=== PATIENT | female | born 1950 | race Caucasian/White ===

== ENCOUNTER 2017-09-29 21:19 | Emergency (ER) | payer MEDICARE, OTHER ==
[~2017-09-29] VITALS: Ht 170.2 cm; Wt 80.0 kg
[~2017-09-29 21:19] MED LIST: CLON.1 PO; FOLI1 PO; MVI PO; THIA100T PO
[2017-09-29 21:31] VITALS: BP 142/67; PULSE 84; RESP 16; TEMP 98.7
--- NOTE | 2017-09-29 21:51 | PD ---
HPI Chief Complaint: Alcohol/Drug Intoxication Time Seen by Provider: 21:48 Travel History International Travel<30 days: No Contact w/Intl Traveler<30days: No Traveled to known affect area: No History of Present Illness HPI 67-year-old female presents under [place] act [place] the [employer] for evaluation of suicidal ideation. The patient reports that she has been feeling depressed and had occasional passive suicidal thoughts for "a long time. " Today she had an argument with her son whom she lives with. She told her son that she would be better off and thus she was placed under Reeder act. Patient reports frequent alcohol use, she believes that she drank about a half a bottle of vodka yesterday. She does not believe that she drank any alcohol today. She denies any illicit drug use. She reports that she does not follow with a primary care physician or psychiatrist. Her primary concern seems to be her lack of a good relationship with her son. She has no medical complaints at this time. PFSH Past Medical History Hx Anticoagulant Therapy: No Depression: Yes Cardiovascular Problems: No High Cholesterol: Yes Chemotherapy: No Cerebrovascular Accident: No Diabetes: No Diminished Hearing: No Hypertension: Yes Psychiatric: Yes (depression, alcohol abuse) Respiratory: No Seizures: Yes (alcohol related, per daughter) ?: Not Menopausal: Yes Past Surgical History Hysterectomy: Yes Social History Alcohol Use: Yes (everyday) Tobacco Use: No Substance Use: Yes (ETOH since age 15; Daily abuse of atleast a glass full of Vodka. ) Allergies-Medications (Allergen,Severity, Reaction): Coded Allergies: penicillin G (Unverified Allergy, Unknown, 09/29/17) Reported Meds & Prescriptions Reported Meds & Active Scripts Active Active Prescriptions or Reported Medications Unobtainable Review of Systems Except as stated in HPI: all other systems reviewed are Neg Physical Exam Narrative GENERAL: This is a disheveled female who is sitting upright on a chair. SKIN: Warm and dry. HEAD: Atraumatic. Normocephalic. EYES: Pupils equal and round. No scleral icterus. No injection or drainage. ENT: No nasal bleeding or discharge. Mucous membranes pink and moist. NECK: Trachea midline. No JVD. CARDIOVASCULAR: Regular rate and rhythm. No murmur appreciated. RESPIRATORY: No accessory muscle use. Clear to auscultation. Breath sounds equal bilaterally. GASTROINTESTINAL: Abdomen soft, non-tender, nondistended. Hepatic and splenic margins not palpable. MUSCULOSKELETAL: No obvious deformities. No clubbing. No cyanosis. No edema. NEUROLOGICAL: Awake and alert. No obvious cranial nerve deficits. Motor grossly within normal limits. Normal speech. PSYCHIATRIC: Depressed, insight and judgment appear reasonable. Data Data Last Documented VS Vital Signs Date Time Temp Pulse Resp B/P (MAP) Pulse Ox O2 Delivery O2 Flow Rate FiO2 09/30/17 12:18 09/30/17 05:26 79 20 96 Room Air 09/29/17 22:02 98.0 Orders Orders Complete Blood Count With Diff (09/29/17 21:52) Comprehensive Metabolic Panel (09/29/17 21:52) Urinalysis - C+S If Indicated (09/29/17 21:52) Thyroid Stimulating Hormone (09/29/17 21:52) Drug Screen, Random Urine (09/29/17 21:52) Alcohol (Ethanol) (09/29/17 22:41) Psych Screen (09/30/17 00:24) Diet Regular Basic (09/30/17 Breakfast) Ed Discharge Order (09/30/17 08:54) Labs Laboratory Tests Test 09/29/17 22:03 09/29/17 23:01 White Blood Count 7.3 TH/MM3 Red Blood Count 4.32 MIL/MM3 Hemoglobin 14.1 GM/DL Hematocrit 42.0 % Mean Corpuscular Volume 97.4 FL Mean Corpuscular Hemoglobin 32.7 PG Mean Corpuscular Hemoglobin Concent 33.5 % Red Cell Distribution Width 14.7 % Platelet Count 194 TH/MM3 Mean Platelet Volume 8.1 FL Neutrophils (%) (Auto) 42.0 % Lymphocytes (%) (Auto) 48.9 % Monocytes (%) (Auto) 7.3 % Eosinophils (%) (Auto) 1.3 % Basophils (%) (Auto) 0.5 % Neutrophils # (Auto) 3.1 TH/MM3 Lymphocytes # (Auto) 3.6 TH/MM3 Monocytes # (Auto) 0.5 TH/MM3 Eosinophils # (Auto) 0.1 TH/MM3 Basophils # (Auto) 0.0 TH/MM3 CBC Comment DIFF FINAL Differential Comment Blood Urea Nitrogen 15 MG/DL Creatinine 0.72 MG/DL Random Glucose 79 MG/DL Total Protein 7.8 GM/DL Albumin 3.7 GM/DL Calcium Level 9.4 MG/DL Alkaline Phosphatase 116 U/L Aspartate Amino Transf (AST/SGOT) 66 U/L Alanine Aminotransferase (ALT/SGPT) 40 U/L Total Bilirubin 0.4 MG/DL Sodium Level 145 MEQ/L Potassium Level 3.7 MEQ/L Chloride Level 109 MEQ/L Carbon Dioxide Level 21.7 MEQ/L Anion Gap 14 MEQ/L Estimat Glomerular Filtration Rate 81 ML/MIN Thyroid Stimulating Hormone 3rd Gen 0.968 uIU/ML Ethyl Alcohol Level 338 MG/DL Urine Color YELLOW Urine Turbidity CLEAR Urine pH 5.0 Urine Specific [place] 1.005 Urine Protein NEG mg/dL Urine Glucose (UA) NEG mg/dL Urine Ketones NEG mg/dL Urine Occult Blood TRACE Urine Nitrite NEG Urine Bilirubin NEG Urine Urobilinogen LESS THAN 2.0 MG/DL Urine Leukocyte Esterase SMALL Urine RBC LESS THAN 1 /hpf Urine WBC 2 /hpf Urine Squamous Epithelial Cells 2 /hpf Urine Transitional Epithelial Cells <1 /hpf Urine Bacteria RARE /hpf Urine Mucus FEW /lpf Microscopic Urinalysis Comment CULT NOT INDICATED Urine Opiates Screen NEG Urine Barbiturates Screen NEG Urine Amphetamines Screen NEG Urine Benzodiazepines Screen NEG Urine Cocaine Screen NEG Urine Cannabinoids Screen NEG MDM Medical Decision Making Medical Screen Exam Complete: Yes Emergency Medical Condition: Yes Medical Record Reviewed: Yes Differential Diagnosis Substance-induced mood disorder, acute psychosis, major depressive disorder, adjustment reaction, depressive disorder not otherwise specified Narrative Course 67-year-old female presents under Reeder act for psychiatric evaluation. Mental health screening discussed with the patient. Psychiatric screen ordered. Alcohol level is 338. Otherwise lab work is unremarkable. The patient is medically cleared for psychiatric disposition. Diagnosis Primary Impression: Medical clearance for psychiatric admission Scripts Unable to Obtain Active Prescriptions or Reported Meds Kamran Mcknight September 29, 2017 21:51
[2017-09-29 22:02] VITALS: BP 128/73; PULSE 81; RESP 20; TEMP 98; O2SAT 97
[2017-09-29 22:21] LABS: AUTOMATED NEUTROPHIL # 3.1 TH/MM3 (1.8-7.7); BASOPHIL % 0.5 % (0.0-2.0); EOSINOPHIL # 0.1 TH/MM3 (0-0.4); EOSINOPHIL % 1.3 % (0.0-4.0); HEMOGLOBIN 14.1 GM/DL (11.6-15.3); LYMPH % 48.9 % (9.0-44.0); LYMPHOCYTE # 3.6 TH/MM3 (1.0-4.8); MEAN CELL VOLUME 97.4 FL (80.0-100.0); MEAN CORPUSCULAR HEMOGLOBIN 32.7 PG (27.0-34.0); MEAN CORPUSCULAR HGB CONC 33.5 % (32.0-36.0); MEAN PLATELET VOLUME 8.1 FL (7.0-11.0); MONO % 7.3 % (0.0-8.0); MONOCYTE # 0.5 TH/MM3 (0-0.9); PLATELET COUNT 194 TH/MM3 (150-450); RED BLOOD COUNT 4.32 MIL/MM3 (4.00-5.30); RED CELL DISTRIBUTION WIDTH 14.7 % (11.6-17.2); WHITE BLOOD COUNT 7.3 TH/MM3 (4.0-11.0)
[2017-09-29 22:43] LABS: ALBUMIN 3.7 GM/DL (3.4-5.0); AST (GOT) 66 U/L (15-37); BICARBONATE 21.7 MEQ/L (21.0-32.0); BLOOD UREA NITROGEN 15 MG/DL (7-18); CALCIUM 9.4 MG/DL (8.5-10.1); CHLORIDE 109 MEQ/L (98-107); CREATININE 0.72 MG/DL (0.50-1.00); GLOMERULAR FILTRATION RATE 81 ML/MIN (>89); GLUCOSE,RANDOM 79 MG/DL (74-106); SODIUM (NA) 145 MEQ/L (136-145)
[2017-09-29 22:44] LABS: ALT (GPT) 40 U/L (10-53)
[2017-09-29 22:53] LABS: ALKALINE PHOSPHATASE 116 U/L (45-117); TOTAL BILIRUBIN ADULT 0.4 MG/DL (0.2-1.0); TOTAL PROTEIN 7.8 GM/DL (6.4-8.2)
[2017-09-29 23:28] LABS: BACTERIA, URINE RARE /hpf; BILIRUBIN, URINE NEG (NEG); BLOOD, URINE TRACE (NEG); GLUCOSE,URINE NEG (NEG); KETONE, URINE NEG (NEG); MUCUS URINE FEW /lpf (OCC); NITRITE,URINE NEG (NEG); SQUAMOUS EPITHELIAL CELL URINE 2 /hpf (0-5); TRANSITIONAL EPI CELLS, URINE <1 /hpf; URINE COLOR YELLOW (YELLW/STRAW); URINE LEUKOCYTE ESTERASE SMALL (NEG)
[2017-09-30 05:26] VITALS: BP 117/70; PULSE 79; RESP 20; O2SAT 96
--- NOTE | 2017-09-30 08:54 | PD ---
Physical Exam Date Seen by Provider: September 30, 2017 Time Seen by Provider: 08:53 Narrative 67-year-old female previously Reeder acted and medically cleared for psychiatric evaluation, has been seen by psychiatric staff, and deemed to be psychiatrically stable for discharge at this time. Patient remains medically stable for discharge at this time. Follow-up will be based on psychiatric note. Data Data Last Documented VS Vital Signs Date Time Temp Pulse Resp B/P (MAP) Pulse Ox O2 Delivery O2 Flow Rate FiO2 09/30/17 05:26 79 20 117/70 (86) 96 Room Air 09/29/17 22:02 98.0 Orders Orders Complete Blood Count With Diff (09/29/17 21:52) Comprehensive Metabolic Panel (09/29/17 21:52) Urinalysis - C+S If Indicated (09/29/17 21:52) Thyroid Stimulating Hormone (09/29/17 21:52) Drug Screen, Random Urine (09/29/17 21:52) Alcohol (Ethanol) (09/29/17 22:41) Psych Screen (09/30/17 00:24) Diet Regular Basic (09/30/17 Breakfast) Labs Laboratory Tests Test 09/29/17 22:03 09/29/17 23:01 White Blood Count 7.3 TH/MM3 Red Blood Count 4.32 MIL/MM3 Hemoglobin 14.1 GM/DL Hematocrit 42.0 % Mean Corpuscular Volume 97.4 FL Mean Corpuscular Hemoglobin 32.7 PG Mean Corpuscular Hemoglobin Concent 33.5 % Red Cell Distribution Width 14.7 % Platelet Count 194 TH/MM3 Mean Platelet Volume 8.1 FL Neutrophils (%) (Auto) 42.0 % Lymphocytes (%) (Auto) 48.9 % Monocytes (%) (Auto) 7.3 % Eosinophils (%) (Auto) 1.3 % Basophils (%) (Auto) 0.5 % Neutrophils # (Auto) 3.1 TH/MM3 Lymphocytes # (Auto) 3.6 TH/MM3 Monocytes # (Auto) 0.5 TH/MM3 Eosinophils # (Auto) 0.1 TH/MM3 Basophils # (Auto) 0.0 TH/MM3 CBC Comment DIFF FINAL Differential Comment Blood Urea Nitrogen 15 MG/DL Creatinine 0.72 MG/DL Random Glucose 79 MG/DL Total Protein 7.8 GM/DL Albumin 3.7 GM/DL Calcium Level 9.4 MG/DL Alkaline Phosphatase 116 U/L Aspartate Amino Transf (AST/SGOT) 66 U/L Alanine Aminotransferase (ALT/SGPT) 40 U/L Total Bilirubin 0.4 MG/DL Sodium Level 145 MEQ/L Potassium Level 3.7 MEQ/L Chloride Level 109 MEQ/L Carbon Dioxide Level 21.7 MEQ/L Anion Gap 14 MEQ/L Estimat Glomerular Filtration Rate 81 ML/MIN Thyroid Stimulating Hormone 3rd Gen 0.968 uIU/ML Ethyl Alcohol Level 338 MG/DL Urine Color YELLOW Urine Turbidity CLEAR Urine pH 5.0 Urine Specific [place] 1.005 Urine Protein NEG mg/dL Urine Glucose (UA) NEG mg/dL Urine Ketones NEG mg/dL Urine Occult Blood TRACE Urine Nitrite NEG Urine Bilirubin NEG Urine Urobilinogen LESS THAN 2.0 MG/DL Urine Leukocyte Esterase SMALL Urine RBC LESS THAN 1 /hpf Urine WBC 2 /hpf Urine Squamous Epithelial Cells 2 /hpf Urine Transitional Epithelial Cells <1 /hpf Urine Bacteria RARE /hpf Urine Mucus FEW /lpf Microscopic Urinalysis Comment CULT NOT INDICATED Urine Opiates Screen NEG Urine Barbiturates Screen NEG Urine Amphetamines Screen NEG Urine Benzodiazepines Screen NEG Urine Cocaine Screen NEG Urine Cannabinoids Screen NEG MDM Medical Record Reviewed: Yes Supervised Visit with MARIIA: Yes Narrative Course 67-year-old female previously Reeder acted and medically cleared for psychiatric evaluation, has been seen by psychiatric staff, and deemed to be psychiatrically stable for discharge at this time. Patient remains medically stable for discharge at this time. Follow-up will be based on psychiatric note. Diagnosis Primary Impression: Medical clearance for psychiatric admission Patient Instructions: General Instructions Scripts Unable to Obtain Active Prescriptions or Reported Meds Disposition: 01 DISCHARGE HOME Condition: Stable Darian Pelaez September 30, 2017 08:54
--- NOTE | 2017-09-30 14:31 | PD.PSY.CON ---
Provisional Diagnosis Admission Date [place] I. Adjustment disorder with depressed mood vs alcohol-induced mood disorder, alcohol use disorder [place] II. Deferred [place] III. No medical history History of Present Illness Service Psychiatry Consult Requested By ER Reason for Consult Suicidal ideation Primary Care Physician Unknown HPI The patient was seen this morning at 7:30 AM The patient is 67-year-old woman, domiciled in [place] with her son, single, employed as ui developer designer, alcohol use disorder, no previous psychiatric hospitalizations, no previous suicide attempts, no significant medical history, presents under [place] act initially by the [employer] for evaluation of suicidal ideation. The patient reports that she has been feeling depressed and had occasional passive suicidal thoughts for "a long time and I have been thinking in engaging in outpatient psychiatric care may be taking antidepressant ". The patient reports that yesterday she had an argument with her son whom she lives with. She says that her son has moved back to her house with a friend of him "with no paying any rent and interpret that does not respect my roles". They engage in an argument. She was intoxicated with alcohol. She told her son that she would be better off and thus she was placed under Reeder act. Patient reports frequent alcohol use, she believes that she drank about a half a bottle of vodka yesterday. She does not believe that she drank any alcohol today. She denies any illicit drug use. The patient now is clinically sober. No withdrawal symptoms present. She denies suicidal enemas ideation. She denies visual and auditory hallucinations. Review of Systems Constitutional: DENIES: Diaphoretic episodes, Fatigue, Fever, Weight gain, Weight loss, Chills, Dizziness, Change in appetite, Night Sweats Endocrine: DENIES: Abnorml menstrual pattern, Heat/cold intolerance, Polydipsia , Polyuria, Polyphagia Eyes: DENIES: Blurred vision, Diplopia, Eye inflammation, Eye pain, Vision loss , Photosensitivity, Double Vision Ears, nose, mouth, throat: DENIES: Tinnitus, Hearing loss, Vertigo, Nasal discharge, Oral lesions, Throat pain, Hoarseness, Ear Pain, Running Nose, Epistaxis, Sinus Pain, Toothache, Odynophagia Respiratory: DENIES: Apneas, Cough, Snoring, Wheezing, Hemoptysis, Sputum production, Shortness of breath Cardiovascular: DENIES: Chest pain, Palpitations, Syncope, Dyspnea on Exertion , PND, Lower Extremity Edema, Orthopnea, Claudication Gastrointestinal: DENIES: Abdominal pain, Black stools, Bloody stools, Constipation, Diarrhea, Nausea, Vomiting, Difficulty Swallowing, Anorexia Genitourinary: DENIES: Abnormal vaginal bleeding, Dysmenorrhea, Dyspareunia, Sexual dysfunction, Urinary frequency, Urinary incontinence, Urgency, Hematuria , Dysuria, Nocturia, Vaginal discharge Musculoskeletal: DENIES: Joint pain, Muscle aches, Stiffness, Joint Swelling, Back pain, Neck pain Integumentary: DENIES: Abnormal pigmentation, Pruritus, Rash, Nail changes, Breast masses, Breast skin changes, Nipple discharge Hematologic/lymphatic: DENIES: Bruising, Lymphadenopathy Immunologic/allergic: DENIES: Eczema, Urticaria Neurologic: DENIES: Abnormal gait, Headache, Localized weakness, Paresthesias, Seizures, Speech Problems, Tremor, Poor Balance Psychiatric: DENIES: Anxiety, Confusion, Mood changes, Depression, Hallucinations, Agitation, Suicidal Ideation, Homicidal Ideation, Delusions Past Family Social History Coded Allergies: penicillin G (Unverified Allergy, Unknown, 09/29/17) Discontinued Scripts Thiamine HCl (Thiamine HCl) 100 Mg Tab, 100 MG PO DAILY for health, #14 TAB 0 Refills Prov:Shimon Coleman MD 08/16/15 Multivitamins (Theragran) 1 Tab Tab, 1 TAB PO DAILY for health, #14 TAB 0 Refills Prov:Shimon Coleman MD 08/16/15 Folic Acid (Folate 1 Mg Tab) 1 Mg Tab, 1 MG PO DAILY for health, #14 TAB 0 Refills Prov:Shimon Coleman MD 08/16/15 Clonidine Hcl (Catapres) 0.1 Mg Tab, 0.1 MG PO Q12HR for health, #28 TAB 0 Refills Prov:Shimon Coleman MD 08/16/15 Family Psych History No family psychiatric history Social History The patient was born and raised in [place], single, she lives in [place] with her son, employed, her highest level of education is called [employer] (min. 2) No previous psychiatric history, patient is willing to engage in psychiatric alcohol and depression Physical Exam No tremors, no EPS, no withdrawal symptoms Vital Signs Vital Signs Date Time Temp Pulse Resp B/P (MAP) Pulse Ox O2 Delivery O2 Flow Rate FiO2 09/30/17 12:18 09/30/17 05:26 79 20 96 Room Air 09/29/17 22:02 98.0 Lab Results Test 09/29/17 22:03 09/29/17 23:01 White Blood Count 7.3 TH/MM3 Red Blood Count 4.32 MIL/MM3 Hemoglobin 14.1 GM/DL Hematocrit 42.0 % Mean Corpuscular Volume 97.4 FL Mean Corpuscular Hemoglobin 32.7 PG Mean Corpuscular Hemoglobin Concent 33.5 % Red Cell Distribution Width 14.7 % Platelet Count 194 TH/MM3 Mean Platelet Volume 8.1 FL Neutrophils (%) (Auto) 42.0 % Lymphocytes (%) (Auto) 48.9 % Monocytes (%) (Auto) 7.3 % Eosinophils (%) (Auto) 1.3 % Basophils (%) (Auto) 0.5 % Neutrophils # (Auto) 3.1 TH/MM3 Lymphocytes # (Auto) 3.6 TH/MM3 Monocytes # (Auto) 0.5 TH/MM3 Eosinophils # (Auto) 0.1 TH/MM3 Basophils # (Auto) 0.0 TH/MM3 CBC Comment DIFF FINAL Differential Comment Blood Urea Nitrogen 15 MG/DL Creatinine 0.72 MG/DL Random Glucose 79 MG/DL Total Protein 7.8 GM/DL Albumin 3.7 GM/DL Calcium Level 9.4 MG/DL Alkaline Phosphatase 116 U/L Aspartate Amino Transf (AST/SGOT) 66 U/L Alanine Aminotransferase (ALT/SGPT) 40 U/L Total Bilirubin 0.4 MG/DL Sodium Level 145 MEQ/L Potassium Level 3.7 MEQ/L Chloride Level 109 MEQ/L Carbon Dioxide Level 21.7 MEQ/L Anion Gap 14 MEQ/L Estimat Glomerular Filtration Rate 81 ML/MIN Thyroid Stimulating Hormone 3rd Gen 0.968 uIU/ML Ethyl Alcohol Level 338 MG/DL Urine Color YELLOW Urine Turbidity CLEAR Urine pH 5.0 Urine Specific [place] 1.005 Urine Protein NEG mg/dL Urine Glucose (UA) NEG mg/dL Urine Ketones NEG mg/dL Urine Occult Blood TRACE Urine Nitrite NEG Urine Bilirubin NEG Urine Urobilinogen LESS THAN 2.0 MG/DL Urine Leukocyte Esterase SMALL Urine RBC LESS THAN 1 /hpf Urine WBC 2 /hpf Urine Squamous Epithelial Cells 2 /hpf Urine Transitional Epithelial Cells <1 /hpf Urine Bacteria RARE /hpf Urine Mucus FEW /lpf Microscopic Urinalysis Comment CULT NOT INDICATED Urine Opiates Screen NEG Urine Barbiturates Screen NEG Urine Amphetamines Screen NEG Urine Benzodiazepines Screen NEG Urine Cocaine Screen NEG Urine Cannabinoids Screen NEG Mental Status Examination Appearance: Appropriate Consciousness: Alert Orientation: x4 Motor Activity: Normal gait Speech: Unremarkable Language: Adequate Fund of Knowledge: Adequate Attention and Concentration: Adequate Memory: Unremarkable Mood: Appropriate Affect: Appropriate Thought Process & Associations: Intact Thought Content: Appropriate Hallucination Type: None Delusion Type: None Suicidal Ideation: No Suicidal Plan: No Suicidal Intention: No Homicidal Ideation: No Homicidal Plan: No Homicidal Intention: No Insight: Adequate Judgment: Adequate Assessment & Plan Problem List: (1) Alcohol abuse with alcohol-induced anxiety disorder ICD Codes: F10.180 - Alcohol abuse with alcohol-induced anxiety disorder Status: Acute Assessment & Plan: At the moment of the psychiatric evaluation the patient does not present any significant neuropsychiatric symptoms that require an immediate psychiatric intervention. The patient does report symptomatology of mild to moderate depression in the context of multiple psycho social stressors, including problems with her son. But, she denies suicidal enemas ideation, she denies visual and auditory hallucinations. The patient does report daily use of alcohol, she admits that she overuses this substance would like to get help. Recent suicidal statement was done in the context of acute alcohol intoxication and frustration with her son. She does not meet criteria for involuntary psychiatric admission at this moment. Referral for outpatient care in [facility] and rehab will be provided. Brief supportive psychotherapy provided. Reeder act will be lifted. Assessment & Plan Estimated LOS: Adam Henning MD September 30, 2017 14:31
== END 2017-09-30 12:19 | disposition home or self-care (01) ==
LOC: NEPC 21:19 → NEPJ 09-30 12:19
DX: F10.180 Alcohol abuse with alcohol-induced anxiety disorder (principal); Y90.8 Blood alcohol level of 240 mg/100 ml or more
CPT/HCPCS: 80053; 80307; 81001; 84443; 85025; 99284